=== PATIENT | female | born 1995 | race African-American/Black ===

== ENCOUNTER 2017-04-14 14:18 | Emergency (ER) | payer OTHER ==
[~2017-04-14] VITALS: Ht 162.6 cm; Wt 112.0 kg
[~2017-04-14 14:18] MED LIST: GLUCOPHAGE XR500 MG PO; IBUPROFEN 800800 M1 PO; NAPROSYN500 MG PO; NOHOMEMEDICATIONS; NORCO 5-325 TA1 EACH PO; ROBAXIN500 MG PO; ZPAK PO
[2017-04-14] MEDS ORDERED: MOBIC7.5 MG PO (15:56)
[2017-04-14 16:06] VITALS: BP 115/48
== END 2017-04-14 16:07 | disposition home or self-care (01) ==
LOC: ER 14:18
DX: S63.694A Other sprain of right ring finger, initial encounter (principal); S00.83XA Contusion of other part of head, initial encounter; E28.2 Polycystic ovarian syndrome; Y04.0XXA Assault by unarmed brawl or fight, initial encounter; Y93.89 Activity, other specified; Y92.89 Other specified places as the place of occurrence of the external cause; Y99.8 Other external cause status

== ENCOUNTER 2017-07-08 00:23 | Emergency (ER) | payer OTHER ==
[~2017-07-08] VITALS: Ht 162.6 cm; Wt 111.1 kg
--- NOTE | ~2017-07-08 | EKG ---
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 07/08/17 0836 0033 0033 Leoncio Santos MD, FACC /EPI
[~2017-07-08 00:23] MED LIST changes: +MOBIC7.5 MG PO
[2017-07-08 01:17] VITALS: BP 114/59
== END 2017-07-08 01:19 | disposition home or self-care (01) ==
LOC: ER 00:23
DX: R07.9 Chest pain, unspecified (principal)

== ENCOUNTER 2018-05-25 09:56 | Emergency (ER) | payer OTHER ==
[~2018-05-25] VITALS: Ht 162.6 cm; Wt 127.0 kg
[2018-05-25 10:00] VITALS: BP 136/52
[2018-05-25] MEDS ORDERED: TESSALON PERLE100 MG PO (10:06)
== END 2018-05-25 10:15 | disposition home or self-care (01) ==
LOC: ER 09:56
DX: J06.9 Acute upper respiratory infection, unspecified (principal); E28.2 Polycystic ovarian syndrome

== ENCOUNTER 2019-06-28 13:32 | Emergency (ER) | payer OTHER ==
[~2019-06-28] VITALS: Ht 162.6 cm; Wt 131.5 kg
[~2019-06-28 13:32] MED LIST changes: +TESSALON PERLE100 MG PO
[2019-06-28 14:10] LABS: ABSOLUTE NEUTROPHILS 5.4 thou/uL (1.4-8.2); BASOPHILS 1.3 % (0.0-2.0); EOSINOPHILS 2.1 % (0.0-3.0); HEMOGLOBIN 9.8 gm/dL (12.0-15.0); LYMPHOCYTES 28.9 % (24.0-44.0); MCH 21.4 pg (26.0-34.0); MCHC 30.7 g/dL (28.0-37.0); MCV 69.9 fL (80.0-100.0); MONOCYTES 7.4 % (1.0-8.0); PLATELET COUNT 385 thou/uL (150-400); POLYS 60.3 % (36.0-66.0); RBC 4.59 mil/uL (4.20-5.00); RDW 19.3 % (10.5-14.5)
[2019-06-28 14:24] LABS: ANION GAP 9 mmol/L (7-16); BUN 10 mg/dL (7-18); CALCIUM 9.1 mg/dL (8.5-10.1); CHLORIDE 102 mmol/L (98-107); CO2 27 mmol/L (21-32); CREATININE 0.9 mg/dL (0.6-1.0); GLUCOSE 89 mg/dL (74-106); POTASSIUM 3.4 mmol/L (3.5-5.1); SODIUM 138 mmol/L (136-145)
[2019-06-28 14:33] LABS: LIPASE 53 U/L (73-393); TROPONIN-I <0.06 ng/mL (<0.06)
[2019-06-28] MEDS ORDERED: BUTALB-APAP-CA1 EACH PO (15:19)
[2019-06-28 15:36] VITALS: BP 126/75
--- NOTE | 2019-06-29 08:50 | EKG ---
[facility] [place] [address] ELECTROCARDIOGRAM REPORT Name: CORTNEY ROPER Room #: DEP [facility].R.#: [id number] Admission: 06/28/19 Attend Phys: Discharge: 06/28/19 Date of : [birth year] Report #: [id number] THIS REPORT FOR: cc: Zaira Obrien Khushbu R. DO Lundgren, Craig H. 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 : 1995 Requested By: Katina Castillo Order Number: [id number] MD: Leoncio Santos Measurements Intervals [place] Rate: 101 P: 20 [place]: 136 QRS: 39 QRSD: 100 T: 14 QT: 350 QTc: 454 Interpretive Statements Sinus tachycardia Nonspecific ST and T wave abnormality Compared to ECG 07/28/2017 15:01:53 T-wave abnormality now present Electronically Signed On 06-29-2019 8:49:35 CDT by Leoncio Santos [email or web address] <ELECTRONICALLY SIGNED> By: Loencio Santos MD, FACC 06/29/19 0849 1342 1342 Leoncio Santos MD, [facility] /EPI
== END 2019-06-28 15:38 | disposition home or self-care (01) ==
LOC: ER 13:32
PROVIDERS: Nurse Practitioner Family
DX: G43.909 Migraine, unspecified, not intractable, without status migrainosus (principal); R07.89 Other chest pain; E28.2 Polycystic ovarian syndrome; E66.9 Obesity, unspecified; Z68.42 Body mass index [BMI] 45.0-49.9, adult

== ENCOUNTER 2020-02-17 09:16 | Emergency (ER) | payer OTHER ==
[~2020-02-17] VITALS: Ht 162.6 cm; Wt 137.4 kg
[~2020-02-17 09:16] MED LIST changes: +BUTALB-APAP-CA1 EACH PO
[2020-02-17] MEDS ORDERED: LEXAPRO 10 MG T10 M1 PO (09:24)
[2020-02-17] MEDS ORDERED: CIPRODEX OTIC7.5 ML OTIC (09:56)
[2020-02-17] MEDS ORDERED: MOBIC15 MG PO (09:56)
[2020-02-17 11:10] VITALS: BP 120/64
== END 2020-02-17 11:11 | disposition home or self-care (01) ==
LOC: ER 09:16
DX: H60.92 Unspecified otitis externa, left ear (principal); Z79.899 Other long term (current) drug therapy

== ENCOUNTER 2020-08-04 18:59 | Emergency (ER) | payer OTHER ==
[~2020-08-04] VITALS: Ht 162.6 cm; Wt 137.9 kg
[~2020-08-04 18:59] MED LIST changes: +CIPRODEX OTIC7.5 ML OTIC; +LEXAPRO 10 MG T10 M1 PO; +MOBIC15 MG PO
[2020-08-04] MEDS ORDERED: METFORMIN HCL500 M3 PO (19:22)
[2020-08-04 19:37] LABS: BASOPHILS 1.3 % (0.0-2.0); EOSINOPHILS 3.4 % (0.0-3.0); HEMATOCRIT 35.6 % (37.0-47.0); HEMOGLOBIN 10.9 gm/dL (12.0-15.0); LYMPHOCYTES 31.7 % (24.0-44.0); MCH 21.5 pg (26.0-34.0); MCHC 30.6 g/dL (28.0-37.0); MCV 70.1 fL (80.0-100.0); MONOCYTES 7.7 % (1.0-8.0); PLATELET COUNT 384 thou/uL (150-400); POLYS 55.9 % (36.0-66.0); RBC 5.08 mil/uL (4.20-5.00); RDW 20.7 % (10.5-14.5)
[2020-08-04 19:40] LABS: ANION GAP 8 mmol/L (7-16); BUN 8 mg/dL (7-18); CHLORIDE 106 mmol/L (98-107); CO2 27 mmol/L (21-32); GLUCOSE 85 mg/dL (74-106); SODIUM 141 mmol/L (136-145)
[2020-08-04 19:50] LABS: ALBUMIN 2.9 g/dL (3.4-5.0); DIRECT BILIRUBIN < 0.1 mg/dL (<0.1-0.2); SGOT 11 U/L (15-37); SGPT 14 U/L (14-59); TOTAL BILIRUBIN 0.3 mg/dL (0.2-1.0); TOTAL PROTEIN 7.5 g/dL (6.4-8.2); TROPONIN-I <0.06 ng/mL (<0.06)
[2020-08-04 19:56] LABS: ANISOCYTOSIS 1+; MICROCYTES 2+; PLATELET ESTIMATE NORMAL
[2020-08-04] MEDS ORDERED: MOBIC15 MG PO (21:49)
[2020-08-04 22:17] VITALS: BP 122/63
--- NOTE | 2020-08-05 07:46 | EKG ---
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1995 Requested By: Patricia Calle Order Number: [id number] MD: Dago Simon Measurements Intervals [place] Rate: 83 P: 33 [place]: 147 QRS: 46 QRSD: 89 T: 38 QT: 360 QTc: 423 Interpretive Statements Sinus rhythm Baseline wander in lead(s) II,III,aVF Compared to ECG 06/28/2019 13:42:57 Sinus tachycardia no longer present ST (T wave) deviation no longer present Electronically Signed On 08-05-2020 7:46:13 CDT by Dago Simon [email or web address] <ELECTRONICALLY SIGNED> By: Dago Simon MD, [facility] 08/05/20 0746 02 02 Dago Simon MD, [facility] /EPI
== END 2020-08-04 22:18 | disposition home or self-care (01) ==
LOC: ER 18:59
PROVIDERS: Emergency Medicine
DX: R07.89 Other chest pain (principal); R42 Dizziness and giddiness; R06.02 Shortness of breath; R05 Cough; Z79.899 Other long term (current) drug therapy; Z87.42 Personal history of other diseases of the female genital tract

== ENCOUNTER 2021-01-06 13:47 | Emergency (ER) | payer OTHER ==
[~2021-01-06] VITALS: Ht 162.6 cm; Wt 138.3 kg
[~2021-01-06 13:47] MED LIST changes: +METFORMIN HCL500 M3 PO
[2021-01-06 13:48] VITALS: BP 144/97
[2021-01-06] MEDS ORDERED: AMOXICILLIN 50500 M1 PO (14:47)
[2021-01-06] MEDS ORDERED: NAPROSYN500 MG PO (14:47)
== END 2021-01-06 14:48 | disposition home or self-care (01) ==
LOC: ER 13:47
DX: H92.03 Otalgia, bilateral (principal); Z79.1 Long term (current) use of non-steroidal anti-inflammatories (NSAID); Z79.84 Long term (current) use of oral hypoglycemic drugs

== ENCOUNTER 2021-01-26 06:02 | Emergency (ER) | payer OTHER ==
[~2021-01-26] VITALS: Ht 162.6 cm; Wt 141.1 kg
[~2021-01-26 06:02] MED LIST changes: +AMOXICILLIN 50500 M1 PO
[2021-01-26 07:03] LABS: URINE BILIRUBIN NEGATIVE (Negative); URINE BLOOD NEGATIVE (Negative); URINE CLARITY CLOUDY; URINE COLOR YELLOW; URINE GLUCOSE-RANDOM* NEGATIVE (Negative); URINE KETONES NEGATIVE (Negative); URINE LEUKOCYTES-REFLEX NEGATIVE (Negative); URINE NITRITE-REFLEX NEGATIVE (Negative); URINE PROTEIN (DIPSTICK) NEGATIVE (Negative); URINE SPECIFIC GRAVITY >= 1.030 (1.005-1.035); URINE UROBILINOGEN 0.2 E.U./dl (0.2-1.0)
[2021-01-26 07:56] LABS: ABSOLUTE NEUTROPHILS 12.4 thou/uL (1.4-8.2); BASOPHILS 0.4 % (0.0-2.0); EOSINOPHILS 0.9 % (0.0-3.0); HEMATOCRIT 35.1 % (37.0-47.0); HEMOGLOBIN 10.4 gm/dL (12.0-15.0); LYMPHOCYTES 6.1 % (24.0-44.0); MCH 21.3 pg (26.0-34.0); MCHC 29.8 g/dL (28.0-37.0); MCV 71.7 fL (80.0-100.0); PLATELET COUNT 419 thou/uL (150-400); POLYS 85.6 % (36.0-66.0); RBC 4.89 mil/uL (4.20-5.00); RDW 19.1 % (10.5-14.5); WBC 14.5 thou/uL (4.0-11.0)
[2021-01-26 08:11] LABS: CALCIUM 8.6 mg/dL (8.5-10.1); CREATININE 0.9 mg/dL (0.6-1.0); POTASSIUM 4.2 mmol/L (3.5-5.1)
[2021-01-26 08:17] LABS: ALBUMIN 2.9 g/dL (3.4-5.0); TOTAL BILIRUBIN 0.2 mg/dL (0.2-1.0); TOTAL PROTEIN 7.1 g/dL (6.4-8.2)
[2021-01-26] MEDS ORDERED: ZOFRAN ODT4 MG PO (09:59)
[2021-01-26 10:00] VITALS: BP 117/62
== END 2021-01-26 10:00 | disposition home or self-care (01) ==
LOC: ER 06:02
PROVIDERS: Emergency Medicine
DX: K52.9 Noninfective gastroenteritis and colitis, unspecified (principal); Z79.1 Long term (current) use of non-steroidal anti-inflammatories (NSAID); Z79.891 Long term (current) use of opiate analgesic; Z79.899 Other long term (current) drug therapy; Z79.84 Long term (current) use of oral hypoglycemic drugs

== ENCOUNTER 2021-03-25 17:56 | Emergency (ER) | payer OTHER ==
[~2021-03-25] VITALS: Ht 162.6 cm; Wt 140.6 kg
[~2021-03-25 17:56] MED LIST changes: +ZOFRAN ODT4 MG PO
[2021-03-25] MEDS ORDERED: TESSALON PERLE100 MG PO (19:54)
[2021-03-25] MEDS ORDERED: PEPCID AC20 MG PO (19:54)
[2021-03-25 20:45] VITALS: BP 120/82
== END 2021-03-25 20:45 | disposition home or self-care (01) ==
LOC: ER 17:56
DX: U07.1 COVID-19 (principal)